=== PATIENT | female | born 1940 | race Caucasian/White ===

== ENCOUNTER 2024-02-02 21:54 | Emergency (ER) | payer OTHER, SELFPAY ==
[2024-02-02 21:59] VITALS: BP 134/82
--- NOTE | 2024-02-02 22:59 | ED.GENMED ---
History of Present Illness
<REX Green - Last Filed: 02/03/24 21:55>
General
Chief Complaint: Fall
Source: patient and ambulance crew
Exam Limitations: dementia
Time Seen by Provider: 02/02/24 22:32
Nursing documentation reviewed up to this point in time: agreed with
Travel History
Have you had any contact with someone who has COVID-19?: No
Do you have any symptoms of coronavirus? Fever > 100 degrees, chills, cough, shortness of breath, sore throat, loss of taste or smell, muscle aches, or headache?: No
History of Present Illness
History of Present Illness:
patient is a 83 y/o female with PMH of hypothyroidism and alzeimers presenting after a witnessed fall earlier today. Patient was brought in by EMS after someone witnessed her fall and hit her head. Patient lives at a [place] [facility] who states patient
is not on blood thinners. Patient has a laceration to her left dorsum of her hand. Patient has alzeimhers and does not recall the event. Patient denies current N/V/D/C, BAILEY, CP, SOB, visual changes, dizziness, or muscle or joint pain. Patient denies
pain to wrist or elbow. Patient is a non reliable source due to mental status.
Review of Systems
<REX Green - Last Filed: 02/03/24 21:55>
Review of Systems
Unable to obtain full review of systems at this time due to: dementia
Other source history: [place] [facility] and ambulance crew
All Other Systems: Not applicable
Constitutional: Reports no symptoms
EENT: Reports no symptoms
Respiratory: Reports no symptoms
Cardiac: Reports no symptoms
ABD/GI: Reports no symptoms
: Reports no symptoms
Musculoskeletal: Reports no symptoms
Skin: Reports other (laceration that patients states is burning )
Neurological: Reports no symptoms
Endocrine: Reports no symptoms
Hematologic/Lymphatic: Reports no symptoms
Psychiatric: Reports no symptoms
Phy Exam
<REX Green - Last Filed: 02/03/24 21:55>
General Physical Exam
General Presentation: well appearing and no apparent distress
General Skin: warm and dry
General Habitus: normal
General Mental: alert
General Hydration: appears well hydrated
ENT Exam
ENT Exam: EOMI, pharynx normal, neck supple and normocephalic
Eye Exam
Eye Exam: PERRL, cornea clear and conjunctiva normal
Cardiovascular Exam
Cardiovascular Exam: regular rate/rhythm, no edema, no murmur and normal peripheral pulses
Pulmonary Exam
Pulmonary Exam: lungs clear, no respiratory distress, no rales, no crackles, no rhonchi, no stridor, no wheezing and no cough
Gastrointestinal Exam
Gastrointestinal Exam: normal bowel sounds, non tender, soft, no organomegaly, no pulsatile mass and non distended
Neurological Exam
Neurological Exam: alert, oriented x3, no motor deficits and speech normal
Musculoskeletal Exam
Musculoskeletal Exam: full ROM
Skin Exam
Skin Exam: laceration (left dorsum of her hand)
Psychiatric Exam
Psychiatric Exam: normal mood/affect
Course
<REX Green - Last Filed: 02/03/24 21:55>
Orders/Labs/Results
Orders:
Orders
02/02/24 23:00
CT Head W/o Iv Contrast Urgent
Comment:
Reason For Exam: fall
02/02/24 23:30
CR Hand - Left 2 Views Urgent
Comment:
Reason For Exam: fall
Vital Signs
Initial and Last Documented VS:
Initial Vital Signs
Temp Pulse Resp BP Pulse Ox
98 F 98 20 134/82 98
02/02/24 21:59 02/02/24 21:59 02/02/24 21:59 02/02/24 21:59 02/02/24 21:59
Last Documented Vital Signs
Temp Pulse Resp BP Pulse Ox
98 F 78 17 148/83 98
02/02/24 21:59 02/02/24 23:25 02/02/24 23:25 02/02/24 23:25 02/02/24 23:25
<Anastacio Bowers DO - Last Filed: 02/03/24 01:23>
Orders/Labs/Results
Orders:
Orders
02/02/24 23:00
CT Head W/o Iv Contrast Urgent
Comment:
Reason For Exam: fall
02/02/24 23:30
CR Hand - Left 2 Views Urgent
Comment:
Reason For Exam: fall
Vital Signs
Initial and Last Documented VS:
Initial Vital Signs
Temp Pulse Resp BP Pulse Ox
98 F 98 20 134/82 98
02/02/24 21:59 02/02/24 21:59 02/02/24 21:59 02/02/24 21:59 02/02/24 21:59
Last Documented Vital Signs
Temp Pulse Resp BP Pulse Ox
98 F 78 17 148/83 98
02/02/24 21:59 02/02/24 23:25 02/02/24 23:25 02/02/24 23:25 02/02/24 23:25
<REX Green - Last Filed: 02/03/24 21:55>
MDM/Problems Addressed
Differential Diagnosis Includes:
left hand laceration
wrist fracture
brain hemorrhage
fall complications
MDM/Problems Addressed:
fall
<REX Green - Last Filed: 02/03/24 21:55>
*Critical Care Note
Total Time (30-74mins, 75-104mins- exclusive of procedures): Not Applicable
<Anastacio Bowers DO - Last Filed: 02/03/24 01:23>
Update Note
Update Note:
CT HEAD
IMPRESSION:
No acute hemorrhage, herniation, or hydrocephalus.
No calvarial fracture.
The visualized paranasal sinuses and mastoid air cells are clear.
ED Attending Note
<REX Green - Last Filed: 02/03/24 21:55>
-
Portions of this chart may have been created with voice recognition software.� Occasional wrong word or��sound alike� substitutions may have occurred due to the inherent limitations of voice recognition software.
<Anastacio Bowers DO - Last Filed: 02/03/24 01:23>
ED Attending Note
Patient seen and examined by attending physician: Yes
I performed the substantive portion of visit, reviewed & personally made and approve the management plan that is documented in note by myself or RASHMI.: Yes
ED Attending Note:
This is a pleasantly demented 83-year-old female that presents with injuries from a fall. She lives at [facility] and brought in by EMS. She did fall but it was unwitnessed. She hit her head. She is not on any blood thinners. Her only
complaint is pain to the dorsum of the left hand. Patient denies any other injury patient was seen in conjunction with the PA student. I have reviewed and agree with the history and treatment plan presented. On my independent physical exam,
patient is awake, confused, at baseline. Lungs are clear to auscultation bilaterally. There is no chest wall tenderness to palpation. No abdominal pain to palpation. No neck pain elicited from palpation. No hip pain. Negative hip rolling test
bilaterally. Good distal pulses on all 4 extremities. Wrist has full range of motion on the left. No tenderness to palpation at the wrist. There is a skin tear approximately 5 cm in length.
The skin tear was thoroughly cleaned by myself. Prineo Dermabond mesh was applied and it adhered to the wound. Patient tolerated procedure well.
Discharge Plan
Departure
Patient Disposition: Residential/SNF
Date of Disposition: 02/03/24
Time of Disposition: :23
Discharge Problem:
fall
Referrals:
UNKNOWN - PT DOES,NOT KNOW [Family Provider] -
Interventions
Interventions:
*Risk Screen - Suicide Last Done: 02/03/24 04:40
*General Assessment Last Done: 02/02/24 23:25
*Neglect/Abuse Screening Last Done: 02/03/24 04:40
ED- Fall Risk Assessment Last Done: 02/02/24 23:25
*ED COVID-19 Vaccine History Last Done: 02/02/24 23:25
*Nursing Disposition Last Done: 02/03/24 04:40
ED-Musculoskeletal Assessment Last Done: 02/02/24 23:25
ED- Neurological Assessment Last Done: 02/02/24 23:25
ED-Skin Assessment Last Done: 02/02/24 23:25
Discharge Date and Time
Discharge Date/Time: 02/03/24 04:40
Print Language: ROMANIAN
[2024-02-02 23:25] VITALS: BP 148/83
== END 2024-02-03 04:40 ==
LOC: EMR 21:54
PROVIDERS: EMERGENCY PHYSICIAN Student in an Organized Health Care Education/Training Program
DX: S61.412A Laceration without foreign body of left hand, initial encounter (principal); W19.XXXA Unspecified fall, initial encounter
CPT/HCPCS: 99284; 12002; 70450; 73120

== ENCOUNTER 2024-06-02 18:51 | Emergency (ER) | payer OTHER, SELFPAY ==
[2024-06-02 18:54] VITALS: BP 104/76
[2024-06-02 19:00] VITALS: BMI 17.2
--- NOTE | 2024-06-02 21:33 | ED.MUSCINJ ---
HPI-Injury
General
Chief Complaint: Musculo-Skeletal Complaint
Source: patient
Exam Limitations: none
Time Seen by Provider: 06/02/24 19:35
History of Present Illness-Injury
Initial Injury comments:
84-year-old female presents from [facility] with trouble ambulating. She has history of dementia and cannot provide any valuable history. Per reports she walked just fine to the EMS stretcher. She has no complaints offer.
Phy Exam
Physical Exam
Physical Exam:
General: Well-appearing female no acute respiratory distress
HEENT: Normocephalic atraumatic heart: Regular rate and rhythm no murmurs
Lungs: Clear no wheeze or rales
Musculoskeletal exam: No deformities. Patient has slight tenderness noted to the right thigh. There is thick calluses noted to the plantar surface of the right foot. No surrounding erythema.
Injury Course
Orders/Labs/Results
Orders:
Orders
06/02/24 20:08
CR Femur - Right Min 2 Vw Urgent
Comment:
Reason For Exam: pain
MDM/Problems Addressed
Differential Diagnosis Includes:
Ambulatory difficulty. Patient typically walks without a walker. She walked here in the room with a slight limp on the right leg. She points to the right thigh. X-rays of the right femur pending
*Critical Care Note
Total Time (30-74mins, 75-104mins- exclusive of procedures): Not Applicable
Update Note
Update Note:
X-rays of the right femur were personally visualized and are negative for acute finding. Patient stable for discharge back to facility
ED Attending Note
-
Portions of this chart may have been created with voice recognition software.� Occasional wrong word or��sound alike� substitutions may have occurred due to the inherent limitations of voice recognition software.
Discharge Plan
Departure
Patient Disposition: Home (Routine Discharge)
Date of Disposition: 06/02/24
Time of Disposition: 21:36
Patient with high blood pressure during this ER visit?: No
Discharge Problem:
evaluation for gait dysfunction
Prescriptions:
No Action
quetiapine 25 mg tablet
50 mg PO QPM
quetiapine 25 mg tablet
12.5 mg PO BID@0800,1400
ammonium lactate 12 % Lotion
1 applic TOPICAL TID
levothyroxine 75 mcg tablet
75 mcg PO DAILY
mirtazapine 15 mg tablet
15 mg PO HS
melatonin 5 mg Tablet
5 mg PO HS
Eucerin Skin Calming Cream
1 applic TOPICAL DAILY
Eucerin Creme
1 applic topical HS
Referrals:
Samir Montelongo MD [Family Provider] -
Activity Restrictions/Additional Instructions:
Return here if needed
Interventions
Interventions:
*Risk Screen - Suicide Last Done: 06/02/24 19:06
*General Assessment Last Done: 06/02/24 19:01
*Neglect/Abuse Screening Last Done: 06/02/24 19:06
ED- Fall Risk Assessment Last Done: 06/02/24 19:06
*ED COVID-19 Vaccine History Last Done: 06/02/24 21:39
*Nursing Disposition Last Done: 06/02/24 21:39
ED-Musculoskeletal Assessment Last Done: 06/02/24 19:04
Discharge Date and Time
Discharge Date/Time: 06/02/24 21:58
Print Language: CZECH
== END 2024-06-02 21:58 | disposition home or self-care (01) ==
LOC: EMR 18:51
PROVIDERS: EMERGENCY PHYSICIAN Emergency Medicine; FAMILY PHYSICIAN Internal Medicine
DX: R26.2 Difficulty in walking, not elsewhere classified (principal); F03.90 Unspecified dementia, unspecified severity, without behavioral disturbance, psychotic disturbance, mood disturbance, and anxiety
CPT/HCPCS: 99283; 73552

== ENCOUNTER 2025-01-09 08:01 | Inpatient (IN) | payer MEDICARE, OTHER, SELFPAY ==
[2025-01-07 14:27] VITALS: BP 165/98
--- NOTE | 2025-01-07 15:27 | ED.GENMED ---
History of Present Illness
General
Chief Complaint: Musculo-Skeletal Complaint
Time Seen by Provider: 01/07/25 15:23
History of Present Illness
History of Present Illness:
Patient is a 84-year-old woman with history of dementia presenting to the emergency department with arm pain. Per medics patient was noted to have swelling pain and redness to the right wrist and arm. Otherwise history is limited secondary to
patient's dementia.no known falls per family members at bedside. no fevers
Phy Exam
Physical Exam
Physical Exam:
GENERAL: in no acute distress
HEENT: normocephalic
NECK: normal inspection
RESPIRATORY: no respiratory distress
CARDIOVASCULAR: regular rate and rhythm
EXTREMITIES: Right upper extremity with swelling to the distal forearm, warm and mild erythema (MCP to mid forearm), some bruising whole arm tenderness to palpation, full range of motion
NEUROLOGIC: awake and alert, moves all extremities
SKIN: warm
Course
Orders/Labs/Results
Orders:
Orders
01/07/25 15:46
Basic Metabolic Panel Urgent
Complete Blood Count/With Diff Urgent
01/07/25 17:03
CefTRIAXone [Rocephin] 1,000 mg IV NOW STA
Abnormal Lab Results
01/07/25
15:46
RBC 3.07 L 10^6/uL
(4.20-5.40)
Hgb 9.3 L g/dL
(12.0-16.0)
Hct 27.3 L %
(37.0-47.0)
RDW 14.6 H %
(11.5-14.5)
Abs Immat Gran (auto) 0.1 H 10^3/uL
(0-0.05)
Absolute Neuts (auto) 6.9 H 10^3/uL
(1.4-6.5)
Absolute Monos (auto) 0.9 H 10^3/uL
(0.1-0.6)
Immature Gran % 0.6 H %
(0-0.5)
Lymphocytes % 14.9 L %
(20.5-51.1)
Monocytes % 9.6 H %
(1.7-9.3)
BUN 20 H mg/dl
(7-17)
Creatinine 1.1 H mg/dL
(0.6-1.0)
Glucose 118 H mg/dl
(70-99)
01/07/25 15:46
01/07/25 15:46
Vital Signs
Initial and Last Documented VS:
Initial Vital Signs
Temp Pulse Resp BP Pulse Ox
98.7 F 102 18 165/98 98
01/07/25 14:27 01/07/25 14:27 01/07/25 14:27 01/07/25 14:27 01/07/25 14:27
Last Documented Vital Signs
Temp Pulse Resp BP Pulse Ox
98.7 F 102 18 165/98 98
01/07/25 14:27 01/07/25 14:27 01/07/25 14:27 01/07/25 14:27 01/07/25 14:27
MDM/Problems Addressed
Differential Diagnosis Includes:
Patient is a 84-year-old woman with history of dementia presenting to the emergency department with arm swelling redness and warmth. Vitals are notable for heart rate in the low 100s and exam does show swelling warmth and redness to the distal
right forearm. Concern for cellulitis vs myositis versus DVT given the extent of the swelling. Considered septic arthritis of the wrist however the erythema is from the MCP to the mid forearm and there is no increased swelling to the wrist, it is
diffuse. Will check blood work and ultrasound.
*Critical Care Note
Total Time (30-74mins, 75-104mins- exclusive of procedures): Not Applicable
Update Note
Update Note:
Blood work is unremarkable. Unfortunately patient was not cooperative with the DVT study. At this time my clinical suspicion for DVT is low. Will start patient on IV antibiotics and admit to the hospitalist. Unclear reaction to penicillin. Will
trial ceftriaxone. Discussed with hospitalist who excepted patient to their service pending CK.
ED Attending Note
-
Portions of this chart may have been created with voice recognition software.� Occasional wrong word or��sound alike� substitutions may have occurred due to the inherent limitations of voice recognition software.
Discharge Plan
Departure
Patient Disposition: Admit
Date of Disposition: 01/07/25
Time of Disposition: 17:03
Presentation/result/management discussed w/ accepting MD/DO: Hospitalist
Discharge Problem:
Cellulitis
Prescriptions:
No Action
levothyroxine 75 mcg tablet
75 mcg PO DAILY
Eucerin Skin Calming Cream
1 applic TOPICAL DAILY
trazodone 50 mg Tablet
25 mg PO HS
clonazepam 0.5 mg Tablet
0.25 mg PO BID
clonazepam 0.5 mg Tablet
0.5 mg PO DAILYPRN PRN (Reason: anxiety)
Rx Instructions:
give prior to care, do not exceed 2 doses in 24hr
Referrals:
Radha Caballero DO [Family Provider] -
Interventions
Interventions:
*Risk Screen - Suicide Last Done: 01/07/25 14:27
*General Assessment Last Done: 01/07/25 14:27
*Neglect/Abuse Screening Last Done: 01/07/25 14:27
*ED- Fall Risk Assessment Last Done: 01/07/25 14:43
*ED COVID-19 Vaccine History Last Done: 01/07/25 14:43
ED-Musculoskeletal Assessment Last Done: 01/07/25 14:41
Discharge Date and Time
Print Language: NIGERIAN
[2025-01-07 15:56] LABS: % Basophils 0.2 % (0-2); % Eosinophils 0.1 % (0-6); % Immature Granulocytes 0.6 % (0-0.5); % Lymphocytes 14.9 % (20.5-51.1); % Monocytes 9.6 % (1.7-9.3); % Neutrophils 74.6 % (42.2-75.2); Absolute Immature Granulocytes 0.1 10^3/uL (0-0.05); Absolute Lymphocytes 1.4 10^3/uL (1.2-3.4); Absolute Monocytes 0.9 10^3/uL (0.1-0.6); Absolute Neutrophils 6.9 10^3/uL (1.4-6.5); Hematocrit 27.3 % (37.0-47.0); Hemoglobin 9.3 g/dL (12.0-16.0); Mean Corp Hgb Conc. 34.1 g/dL (33.0-37.0); Mean Corpuscular Hgb 30.3 pg (27.0-31.0); Mean Corpuscular Volume 88.9 fL (81.0-99.0); Mean Platelet Volume 9.6 fL (7.4-10.4); Nucleated Red Blood Cells % 0 %; Platelet Count 181 10^3/uL (130-400); Red Blood Cell Count 3.07 10^6/uL (4.20-5.40); Red Cell Dist. Width 14.6 % (11.5-14.5); White Blood Cell Count 9.3 10^3/uL (4.8-10.8)
[2025-01-07 16:09] LABS: Blood Urea Nitrogen 20 mg/dl (7-17); Calcium 9.1 mg/dl (8.4-10.2); Carbon Dioxide 28 mmol/L (22-30); Chloride 104 mmol/L (98-107); Glucose 118 mg/dl (70-99); Potassium 3.9 mmol/L (3.5-5.1); Sodium 138 mmol/L (135-145); eGFR 50.17
[2025-01-07] MEDS: ROCEPHIN 1000 MG IV (17:15)
--- NOTE | 2025-01-07 17:21 | HPS.HSE ---
Family Physician
-
Family Physician: Radha Caballero
Chief Complaint
-
right arm pain and swelling
History of Present Illness
84-year-old female past medical history of advanced dementia resides at [facility], anxiety, hypothyroidism, presenting to emergency room with right wrist and arm pain and swelling. As per medics she was noted to have swelling and pain and redness
of the right wrist and arm. No fevers or chills. This was noticed today but family had not seen her in the past 1 day. No injury or falls.
Patient has very advanced dementia at baseline and is combative and tries to flee. No prior history of gout or joint infections.
No prior history of smoking or alcohol use.
Left wrist surgery 4 years ago.
Medical History
Past Medical History
Past Medical History: Reports Other (advanced dementia resides at [facility], anxiety, hypothyroidism, )
Past Surgical History: Reports None
Social History
Tobacco: Non-smoker
Alcohol: None
Drug: None
Family History
Family History: Not pertinent
Allergies / Home Medications
Allergies reflects when Allergies were last updated in [employer].
Home Medications with original date entered in [employer]
Allergy/Medication List:
Allergies
Allergy/AdvReac Type Severity Reaction Status Date / Time
clarithromycin Allergy Unknown Verified 06/02/24 19:09
NSAIDS (Non-Steroidal Allergy Unknown Verified 06/02/24 19:09
Anti-Inflamma
Penicillins Allergy Unknown Verified 06/02/24 19:09
IBANDRONIC ACID Allergy Unknown Uncoded 06/02/24 19:09
Home Medications
emollient combination no.69 (Eucerin Skin Calming cream) 1 applic topical DAILY 06/02/24
levothyroxine 75 mcg tablet 75 mcg PO DAILY 06/02/24
clonazepam 0.5 mg tablet 0.25 mg PO BID 01/07/25
clonazepam 0.5 mg tablet 0.5 mg PO DAILYPRN PRN anxiety 01/07/25
trazodone 50 mg tablet 25 mg PO HS 01/07/25
Review of Systems
-
History Source: Patient
A 12 point ROS was completed and negative except as noted: Yes
Constitutional: Reports No Symptoms
EENT: Reports No Symptoms
Respiratory: Reports No Symptoms
Cardiac: Reports No Symptoms
Abdomen/GI: Reports No Symptoms
: Reports No Symptoms
Musculoskeletal: Reports No Symptoms
Skin: Reports See HPI
Neurological: Reports No Symptoms
Endocrine: Reports No Symptoms
Hematologic/Lymphatic: Reports No Symptoms
Psych: Reports No Symptoms
Physical Exam
Vital Signs
Vital Signs
Temp Pulse Resp BP Pulse Ox
98.7 F 102 18 165/98 98
01/07/25 14:27 01/07/25 14:27 01/07/25 14:27 01/07/25 14:27 01/07/25 14:27
Physical Exam
General: Well Developed, Well Nourished and No Apparent Distress
HEENT: NormoCephalic, Moist mucous membranes and Atraumatic
Respiratory: Clear
Cardiac: S1/S2 and Regular Rhythm; No Murmur or Rub
GI: Soft, Non Tender, Non Distended and Normal Bowel Sounds; No Organomegaly
Rectal: Deferred by Provider
Musculoskeletal: No Clubbing, No Cyanosis and No Edema
Skin: Other (right forearm wrist erythematous, swollen ); No Rash
Neuro: Nonfocal/grossly intact
Laboratory Results
-
01/07/25 15:46
01/07/25 15:46
Data Reviewed
-
Lab Data: Labs Reviewed by me
Old Records: Reviewed
Impression/Plan
-
IMPRESSION:
PLAN:
# Right forearm/wrist cellulitis
-Patient will not let me examine arm fully, normal for her to behave this way as per family,
-Cefazolin for now
-Ultrasound was ordered but patient would not allow this
#Likely CKD
Creatinine 1.1, no prior for comparison
Advanced Dementia/anxiety
-Continue clonazepam, trazodone
-Patient high fall risk
Hypothyroidism
-Continue levothyroxine
Chronic anemia
-Hemoglobin 9
DNR/DNI
DVT prophylaxis�heparin
Regular diet
[2025-01-07 17:23] VITALS: BP 154/96
[2025-01-07 17:33] VITALS: BMI 17.3
[2025-01-07 17:37] LABS: Creatine Phosphokinase 304 U/L (30-135)
[2025-01-07 19:01] VITALS: BP 154/90
--- NOTE | 2025-01-07 19:12 | PTCARENOTE ---
pt presents from ED via stretcher. pt is confused, restless, combative, trying to get oob. pt is on bed alarm. call mahoney within the reach. plan of care ongoing
[2025-01-07] MEDS: HEPARIN 5000 UNITS SC (20:52)
[2025-01-07] MEDS: KLONOPIN 0.25 MG PO (20:56)
[2025-01-07] MEDS: DESYREL 25 MG PO (20:57)
[2025-01-07] MEDS: TYLENOL 650 MG PO (22:42)
[2025-01-07] MEDS: ANCEF 5 IV (23:00)
[2025-01-07 23:39] VITALS: BP 137/85
[2025-01-08] MEDS: SYNTHROID 75 MCG PO (05:29)
[2025-01-08 06:03] LABS: % Basophils 0.5 % (0-2); % Eosinophils 0.5 % (0-6); % Immature Granulocytes 0.4 % (0-0.5); % Lymphocytes 33.8 % (20.5-51.1); % Monocytes 8.6 % (1.7-9.3); % Neutrophils 56.2 % (42.2-75.2); Absolute Basophils 0.1 10^3/uL (0-0.2); Absolute Eosinophils 0.1 10^3/uL (0-0.7); Absolute Lymphocytes 3.2 10^3/uL (1.2-3.4); Absolute Monocytes 0.8 10^3/uL (0.1-0.6); Absolute Neutrophils 5.4 10^3/uL (1.4-6.5); Hematocrit 28.2 % (37.0-47.0); Hemoglobin 9.8 g/dL (12.0-16.0); Mean Corp Hgb Conc. 34.8 g/dL (33.0-37.0); Mean Corpuscular Hgb 30.5 pg (27.0-31.0); Mean Corpuscular Volume 87.9 fL (81.0-99.0); Mean Platelet Volume 9.7 fL (7.4-10.4); Nucleated Red Blood Cells % 0 %; Platelet Count 191 10^3/uL (130-400); Red Blood Cell Count 3.21 10^6/uL (4.20-5.40); Red Cell Dist. Width 14.3 % (11.5-14.5); White Blood Cell Count 9.5 10^3/uL (4.8-10.8)
[2025-01-08 06:26] LABS: Blood Urea Nitrogen 15 mg/dl (7-17); Calcium 9.3 mg/dl (8.4-10.2); Carbon Dioxide 24 mmol/L (22-30); Chloride 104 mmol/L (98-107); Estimated Creatinine Clearance 33 ml/min; Glucose 90 mg/dl (70-99); Potassium 4.6 mmol/L (3.5-5.1); Sodium 138 mmol/L (135-145); eGFR > 60.00
[2025-01-08] MEDS: HEPARIN 5000 UNITS SC (08:52)
[2025-01-08] MEDS: ANCEF 5 IV ×3 (08:52→23:01)
[2025-01-08 08:53] VITALS: BP 92/65
[2025-01-08] MEDS: KLONOPIN 0.25 MG PO ×2 (08:53→20:34)
--- NOTE | 2025-01-08 11:52 | CM ---
Initial assessment completed with pt friend via phone.
Pt is an 84yr old admitted from [facility] with swelling and cellulitis of her wrist and hand.
Per friend, pt is agitated and resistive to care at baseline, which has continued here in the hospital.
Pt is indep with mobility at baseline, and does receive some aide with ADLs.
PCP Radha Caballero
Pharm; [facility]
PLAN; Return to [place]
--- NOTE | 2025-01-08 12:59 | VATNOTE ---
left iv site needs to be redressed; however pt. extremely combative.
--- NOTE | 2025-01-08 13:26 | W.PN.HOSP.TC ---
Today's Communication/Plan
-
cw Cefazolin
Ortho consult
Assessment / Plan
Assessment / Plan
# Right forearm/wrist cellulitis
-Nontoxic and not toxic
-cw Cefazolin for now
- Will consult ortho for diagnostic arthrocentesis of the wrist.
#Likely CKD
Creatinine 1.1, no prior for comparison
Advanced Dementia/anxiety
-Continue clonazepam, trazodone
-Patient high fall risk
Hypothyroidism
-Continue levothyroxine
Chronic anemia
-Hemoglobin 9
DNR/DNI
DVT prophylaxis�heparin
Regular diet
Anticipated Discharge: > 48 hours
Subjective/Interval History
-
Date of Service: January 08, 2025
Confused from dementia. No meaningful history obtained from the patient.
Looks nontoxic.
Objective Data
-
Labs:
Laboratory Results
01/08/25
05:37
WBC 9.5
Hgb 9.8 L
Hct 28.2 L
Plt Count 191
Sodium 138
Potassium 4.6
Chloride 104
Carbon Dioxide 24
BUN 15
Creatinine 0.8
Glucose 90
Calcium 9.3
Vital Signs:
Vital Signs
Temp Pulse Resp BP Pulse Ox
99.1 F 79 18 92/65 96
01/07/25 23:39 01/08/25 08:53 01/08/25 08:53 01/08/25 08:53 01/07/25 23:39
I&O
01/07/25 01/08/25 01/09/25
05:59 06:59 06:59
Intake Total
Output Total
Balance
Review of Systems
-
Unable to obtain full review of systems at this time due to: Dementia
Physical Exam
-
General: Comfortable
Respiratory: Clear to Auscultation and Non Labored Respirations; Negative Accessory Resp Muscle Use
Cardiac: Regular Rhythm and S1/S2
GI: Soft
Musculoskeletal: Other (Rt dorsum of hand and proximal forearm with cellulitis; Rt wrist with swelling and PROM . Pt not much cooperative to exam.)
Neuro: Awake, Alert and Oriented
Psych: Calm and Confused
Data Reviewed
-
Labs: Labs Reviewed by me
[2025-01-08] MEDS: KLONOPIN 0.5 MG PO (13:29)
--- NOTE | 2025-01-08 14:11 | CON.ORTHO ---
Consultation - Orthopedics
History
Patient is a 84-year-old woman, severely demented who has a right swollen wrist. No history available from patient. Patient resides in memory care and there was no nursing history of fall or trauma. No previous history of septic arthritis or
crystal disease.
Allergies / Home Medications
Allergy/AdvReac Type Severity Reaction Status Date / Time
clarithromycin Allergy Unknown Verified 06/02/24 19:09
NSAIDS (Non-Steroidal Allergy Unknown Verified 06/02/24 19:09
Anti-Inflamma
Penicillins Allergy Unknown Verified 06/02/24 19:09
IBANDRONIC ACID Allergy Unknown Uncoded 06/02/24 19:09
�Medication �Instructions �Recorded
emollient combination no.69 1 applic topical DAILY 06/02/24
(Eucerin Skin Calming cream)
levothyroxine 75 mcg tablet 75 mcg PO DAILY 06/02/24
clonazepam 0.5 mg tablet 0.25 mg PO BID 01/07/25
clonazepam 0.5 mg tablet 0.5 mg PO DAILYPRN PRN anxiety 01/07/25
trazodone 50 mg tablet 25 mg PO HS 01/07/25
Vital Signs / Lab Results
Temp Pulse Resp BP Pulse Ox
99.1 F 79 18 92/65 96
01/07/25 23:39 01/08/25 08:53 01/08/25 08:53 01/08/25 08:53 01/07/25 23:39
01/08/25 05:37
01/08/25 05:37
Patient is clearly agitated. Right wrist is moderately swollen and patient avoids using it. Distal neurovascular exam is intact. Unable to appreciate an effusion.
Assessment / Plan
Right wrist erythema.
Recommend x-rays, this could be the result of advanced osteoarthritis.
Other diagnoses include septic arthritis or crystal disease. Would recommend either empiric treatment with antibiotics and steroids or for definitive diagnosis interventional radiology for aspiration.
[2025-01-08] MEDS: HEPARIN SC ×2 (20:36→20:48)
[2025-01-08] MEDS: DESYREL 25 MG PO (22:56)
[2025-01-08 23:01] VITALS: BP 115/85
[2025-01-09] MEDS: SYNTHROID 75 MCG PO (05:24)
[2025-01-09 07:05] VITALS: BP 155/98
[2025-01-09] MEDS: HEPARIN SC ×3 (08:29→20:15)
[2025-01-09] MEDS: ANCEF 5 IV ×3 (08:31→23:02)
[2025-01-09] MEDS: KLONOPIN 0.25 MG PO ×2 (08:32→20:15)
--- NOTE | 2025-01-09 09:10 | W.PN.UPDATE ---
Update Note
Progress Note Update
patient more lucid this morning. Was very engaging and answer questions appropriately. Right wrist symptoms have essentially resolved. No pain about the wrist to palpation. Pain-free range of motion of the wrist hand and fingers. Continue
treatment per the primary medical team. As a formality three-view x-rays were requested. Will comment after completion
[2025-01-09] MEDS: DECADRON 10 MG IV (15:04)
--- NOTE | 2025-01-09 15:08 | W.PN.HOSP.TC ---
Today's Communication/Plan
-
check uric acid
decadron x 1
x-ray to r/o fracture if we can get it
Assessment / Plan
Assessment / Plan
pt is an 84 year old female
Right forearm/wrist swelling and tender to touch--doubt cellulitis--suspect more gout--also doubt septic arthritis--do not believe she will stay still for x-ray (ordered anyway) or arthrocentesis--cont ancef--check uric acid--give 10 mg decadron x 1
now
JOSETTE--creat 1.1 on admission down to 0.8
Advanced Dementia/anxiety--Continue clonazepam, trazodone--Patient high fall risk
Hypothyroidism--Continue levothyroxine
Chronic anemia--Hemoglobin 9--no reason to suspect active bleeding
code status --DNR/DNI
DVT proph�heparin
Anticipated Discharge: 24 - 48 hours
Subjective/Interval History
-
Date of Service: January 09, 2025
very confused--not redirectable--moving all over the bed even with at bedside
Objective Data
-
Vital Signs:
max temp for 24 hours
01/07/25
19:01
Temp 100.1 F
Vital Signs
Temp Pulse Resp BP Pulse Ox
97.5 F 92 20 155/98 99
01/09/25 07:05 01/09/25 07:05 01/09/25 07:05 01/09/25 07:05 01/09/25 11:41
I&O
01/08/25 01/09/25 01/10/25
06:59 06:59 06:59
Intake Total 60 / 60
Output Total
Balance 60 / 60
Review of Systems
-
Unable to obtain full review of systems at this time due to: Dementia
Physical Exam
-
General: Well Developed and Well Nourished
HEENT: Normocephalic
Respiratory: Clear to Auscultation
Cardiac: Regular Rhythm and S1/S2; Negative Murmur
GI: Soft, Nontender, Nondistended and Normal Bowel Sounds
Musculoskeletal: No Clubbing, No Cyanosis and Other (right wrist tender to touch and swollen, red)
Neuro: Other (not redirectable); Negative AO x 3
Psych: Agitated and Apparent Dementia
[2025-01-09 15:10] VITALS: BP 156/93
--- NOTE | 2025-01-09 15:30 | CM ---
Patient seen at bedside with patient and physician. Patient unable to complete sentence, patient stated that she was like this normally. Patient confirmed plan is to return to [facility]. CM will continue to follow
for discharge planning needs.
Plan; return to center, pending medical treatment plan
[2025-01-09] MEDS: DESYREL 25 MG PO (22:57)
[2025-01-09 23:41] VITALS: BP 128/81
[2025-01-10] MEDS: SYNTHROID PO (06:11)
[2025-01-10 07:55] VITALS: BP 126/95
[2025-01-10] MEDS: KLONOPIN 0.25 MG PO (08:28)
[2025-01-10] MEDS: ANCEF 5 IV (08:28)
[2025-01-10] MEDS: HEPARIN 5000 UNITS SC (08:29)
[2025-01-10 08:35] LABS: Uric Acid 4.7 mg/dl (2.5-6.2)
--- NOTE | 2025-01-10 08:44 | W.PN.UPDATE ---
Update Note
Progress Note Update
Patient resting in bed this morning. She reports little pain to the wrist. Xrays performed yesterday show acute transverse impacted fracture of the distal right radius, small acute displaced fracture of the ulnar styloid, moderate osteoarthritis of
the scaphotrapezial joint. Recommend wrist brace to right arm (ordered urgently from [facility]). She is to wear this at all times. Try to limit weight bearing. Follow up outpatient in two weeks for repeat xrays.
--- NOTE | 2025-01-10 09:34 | CM ---
Addendum entered by Carolyn Rees 01/10/25 14:35:
CM spoke with Letty at [phone]/ fax [phone]. Patient to return to [facility] today. [facility] pharmacy. Patient and facility asked to use [facility] as they are contracted with them and it is much
cheaper for patient copay. CM spoke with Letty who is arranged ambulance for 6pm as [facility] is not able to do so. CM also sent referral to [facility] for nursing support at [facility]. CM will call to patient and review IMM.
CM will continue to follow for discharge planning needs.
Plan; home with [facility]
Addendum entered by Carolyn Rees 01/10/25 14:01:
CM spoke with [facility] at [facility] facility to update that patient is not working with therapy at this time. She indicated that she would call CM back regarding next steps. CM will continue to follow for discharge planning needs.
Plan; return to memory care at [facility]
Addendum entered by Carolyn Rees 01/10/25 11:36:
pending wrist brace from ED. CM will call to patient facility to confirm plan
Original Note:
CM spoke with nurse cloth napping supervisor at [facility] to update her that patient had wrist fracture per physician. CM will fax findings at nurse request to [phone] and per nurse recommendation is for rehab at [facility]. CM will review with
patient and send referrals. CM will continue to follow for discharge planning needs.
Plan; SNF vs personal care pending medical management
--- NOTE | 2025-01-10 14:26 | W.PN.HOSP.TC ---
Today's Communication/Plan
-
d/c
Assessment / Plan
Assessment / Plan
pt is an 84 year old female
Right forearm/wrist swelling and tender to touch--doubt cellulitis--acute transverse impacted fracture of distal right radius with small acute displaced fracture of the ulnar styloid per x-ray checked last night, follow up with ortho--not gout, uric
acid 4.7--also doubt septic arthritis-- stop ancef---s/p 10 mg decadron x 1 now--will need brace and pain meds
JOSETTE--creat 1.1 on admission down to 0.8
Advanced Dementia/anxiety--Continue clonazepam, trazodone--Patient high fall risk
Hypothyroidism--Continue levothyroxine
Chronic anemia--Hemoglobin 9--no reason to suspect active bleeding
code status --DNR/DNI
DVT proph�heparin
Anticipated Discharge: Today
Subjective/Interval History
-
Date of Service: January 10, 2025
pt remains confused
Objective Data
-
Vital Signs:
max temp for 24 hours
01/09/25
15:10
Temp 99.6 F
Vital Signs
Temp Pulse Resp BP Pulse Ox
98.2 F 68 16 126/95 97
01/10/25 07:55 01/10/25 07:55 01/10/25 07:55 01/10/25 07:55 01/10/25 10:00
I&O
01/09/25 01/10/25 01/11/25
06:59 06:59 06:59
Intake Total 60 / 60 420 / 420
Balance 60 / 60 420 / 420
Review of Systems
-
Unable to obtain full review of systems at this time due to: Dementia
Physical Exam
-
General: Well Developed, Well Nourished and No Apparent Distress
HEENT: Normocephalic and Atraumatic
Respiratory: Clear to Auscultation; Negative Wheezes or Rhonchi
Cardiac: Regular Rhythm and S1/S2; Negative Murmur
GI: Soft, Nontender, Nondistended and Normal Bowel Sounds
Musculoskeletal: No Clubbing, No Cyanosis and Other (right wrist swollen pain)
[2025-01-10 15:55] VITALS: BP 106/78
[2025-01-10] MEDS: ANCEF IV (16:28)
--- NOTE | 2025-01-10 16:52 | W.DCSUMMARY ---
Discharge Summary
Discharge Data
Date of Admission: 01/07/25
Date of Discharge: 01/10/25
-
Pending Results: No
Hospital Course
Primary care physician : Radha Caballero
Principal Discharge diagnosis : Acute transverse impacted fracture of the distal right radius with small acute displaced fracture of the ulnar styloid, acute kidney injury
Chronic Discharge diagnosis : Advanced dementia/anxiety, hypothyroidism, anemia of chronic disease
Hospital Course : Patient was 84-year-old female with advanced dementia residing at a memory care unit who presented with right wrist pain, redness and swelling. She denied fevers or chills. This was noticed on the day of admission there were no
reported injuries or falls. Patient was very combative and tried to flee and has advanced dementia. There is no history of gout or previous joint infections. Patient was admitted with presumed cellulitis.
Problem #1: Acute transverse impacted fracture of the distal right radius with small acute displaced fracture of the ulnar styloid. Patient was initially admitted with a diagnosis of cellulitis. Orthopedics was consulted for possible aspiration
for septic joint and/or crystalloid deposition. Patient was given 1 dose of Decadron 10 mg x 1 in case this was gout. Uric acid was checked and was found to be 4.7. Portable wrist x-ray was done which showed fracture as mentioned. This was done
at the bedside because we felt that the patient would not cooperate with going down to the department for a formal x-ray study. Brace was ordered and the patient is instructed to keep that on her wrist at all times including sleep. She will
follow-up with orthopedics in 2 weeks.
Problem #2: Acute kidney injury. Patient's creatinine on admission was 1.1. This was thought to be due to dehydration. Patient received IV fluids with appropriate resolution of her creatinine to 0.8.
Problem #3: All other medical issues. These include Advanced dementia/anxiety, hypothyroidism, anemia of chronic disease. These medical issues were stable during her hospitalization. Medications were continued as able.
Patient is stable for discharge back to her memory care unit at this time. If there are any questions regarding this dictation or her hospital stay, please not hesitate to call. Our office number is [phone].
Time for discharge 31 minutes.
Important imaging findings :
WRIST X-RAY IMPRESSION:
1. Acute transverse impacted fracture of the distal right radius.
2. Small acute displaced fracture of the ulnar styloid.
3. Moderate osteoarthritis of the scaphotrapezial joint.
Discharge Plan
-
Patient Disposition: Assisted Living
Discharge Diagnosis/Procedures: Acute transverse impacted fracture of the distal right radius with small acute displaced fracture of the ulnar styloid, acute kidney injury resolved, advanced dementia/anxiety, hypothyroidism, anemia of chronic
disease
Condition: Fair
Diet: As tolerated and Regular
Additional Activity: No weightbearing to right wrist--wear splint at all times including sleep
Driving Restrictions: No driving
Bathing Restrictions: None
Other Services: VN
Referrals:
Ugo Hernadez MD [Active] - in two weeks
Radha Caballero DO [Family Provider] - in less than 1 week
Prescriptions:
New
acetaminophen 325 mg capsule
650 mg PO QID Qty: 60 0RF
oxycodone 5 mg tablet
5 mg PO Q6H PRN (Reason: severe pain) Qty: 14 0RF
tramadol 25 mg tablet
12.5 mg PO Q6H PRN (Reason: moderate pain) Qty: 10 0RF
Continued
levothyroxine 75 mcg tablet
75 mcg PO DAILY
Eucerin Skin Calming Cream
1 applic TOPICAL DAILY
trazodone 50 mg Tablet
25 mg PO HS
clonazepam 0.5 mg Tablet
0.25 mg PO BID
clonazepam 0.5 mg Tablet
0.5 mg PO DAILYPRN PRN (Reason: anxiety)
Rx Instructions:
give prior to care, do not exceed 2 doses in 24hr
Discharge Orders:
Discharge Patient (As Directed); Ordered 01/10/25
Ordered By: Ariana Pizano
Discharge Date and Time
Print Language: ARABIC
== END 2025-01-10 18:42 | disposition home health service (06) | DRG 563 ==
LOC: 4 EAST ACU 08:01
PROVIDERS: ADMITTING PHYSICIAN Hospitalist; ATTENDING PHYSICIAN Internal Medicine; CONSULT PHYSICIAN Specialist; EMERGENCY PHYSICIAN Student in an Organized Health Care Education/Training Program; FAMILY PHYSICIAN Family Medicine
DX: S52.501A Unspecified fracture of the lower end of right radius, initial encounter for closed fracture (principal); N17.9 Acute kidney failure, unspecified; F03.93 Unspecified dementia, unspecified severity, with mood disturbance; F03.94 Unspecified dementia, unspecified severity, with anxiety; S52.611A Displaced fracture of right ulna styloid process, initial encounter for closed fracture; M19.031 Primary osteoarthritis, right wrist; Z66 Do not resuscitate; E03.9 Hypothyroidism, unspecified; N18.9 Chronic kidney disease, unspecified; D63.1 Anemia in chronic kidney disease; Z91.81 History of falling; E86.0 Dehydration; X58.XXXA Exposure to other specified factors, initial encounter
CPT/HCPCS: 73100; 80048; 82550; 84550; 85025; 96374; 99284

== ENCOUNTER 2025-01-13 16:55 | Emergency (ER) | payer MEDICARE, OTHER, SELFPAY ==
[2025-01-13 17:07] VITALS: BP 147/83
--- NOTE | 2025-01-13 18:46 | ED.GENMED ---
History of Present Illness
General
Chief Complaint: Head Injury
Source: patient
Exam Limitations: dementia
Time Seen by Provider: 01/13/25 17:52
History of Present Illness
History of Present Illness:
84-year-old female advanced dementia from a dementia unit fall during PT into a couch she is acting normally LAUREN Sherwood called to confirm the history, here she appears comfortable she moves all extremities no overt signs of head or neck trauma no
pain with range of motion of her hips
Past History
Past History
ED Past Medical History: Other (Dementia)
Social History
Alcohol: None
Drug: None
Living: custodial
Employment: Not employed
Family History
Family History: Unable to obtain (Dementia)
Review of Systems
Review of Systems
Unable to obtain full review of systems at this time due to: dementia
All Other Systems: Not applicable
Phy Exam
Physical Exam
Physical Exam:
Physical Exam
General: Pleasant elderly demented female no overt signs of head or neck
Neck: No tongue bite
Heart: Regular
Lungs: no acute respiratory distress.
Neuro: Moves all extremities,
Skin: no rash
Psychiatric: Demented cooperative
Extremities: No pain with range of motion of the hips
Course
Orders/Labs/Results
Orders:
Orders
01/13/25 17:25
CT Head W/o Iv Contrast Urgent
Comment:
Reason For Exam: fall, head injury
01/13/25 18:04
CT Cervical Spine W/o Iv Contr Urgent
Comment:
Reason For Exam: fall
Vital Signs
Initial and Last Documented VS:
Initial Vital Signs
Temp Pulse Resp BP Pulse Ox
98.4 F 66 20 147/83 98
01/13/25 17:07 01/13/25 17:07 01/13/25 17:07 01/13/25 17:07 01/13/25 17:07
Last Documented Vital Signs
Temp Pulse Resp BP Pulse Ox
98.4 F 66 20 147/83 98
01/13/25 17:07 01/13/25 17:07 01/13/25 17:07 01/13/25 17:07 01/13/25 17:07
MDM/Problems Addressed
Differential Diagnosis Includes:
Skull fracture subdural epidural C-spine injury no signs of hip fracture by history
MDM/Problems Addressed:
Fall
Chronic conditions affecting care:
Dementia
Acute Exacerbation and/or Progression of Chronic Illness:
Dementia
*Radiology
Radiology exam reviewed: radiology read reviewed
*Pulse Oximetry
Patient hypoxic: no
*Critical Care Note
Total Time (30-74mins, 75-104mins- exclusive of procedures): Not Applicable
Update Note
Update Note:
Update CT noted formal report pending
ED Attending Note
-
Portions of this chart may have been created with voice recognition software.� Occasional wrong word or��sound alike� substitutions may have occurred due to the inherent limitations of voice recognition software.
Discharge Plan
Departure
Patient Disposition: Home (Routine Discharge)
Date of Disposition: 01/13/25
Time of Disposition: 18:46
Patient with high blood pressure during this ER visit?: No
Condition: Good
Discharge Problem:
Fall
Instructions: Head Injury in Adults (DC), Minor Head Injury (DC)
Prescriptions:
No Action
levothyroxine 75 mcg tablet
75 mcg PO DAILY
Eucerin Skin Calming Cream
1 applic TOPICAL DAILY
trazodone 50 mg Tablet
25 mg PO HS
clonazepam 0.5 mg Tablet
0.25 mg PO BID
clonazepam 0.5 mg Tablet
0.5 mg PO DAILYPRN PRN (Reason: anxiety)
Rx Instructions:
give prior to care, do not exceed 2 doses in 24hr
acetaminophen 325 mg capsule
650 mg PO QID Qty: 60 0RF
oxycodone 5 mg tablet
5 mg PO Q6H PRN (Reason: severe pain) Qty: 14 0RF
tramadol 25 mg tablet
12.5 mg PO Q6H PRN (Reason: moderate pain) Qty: 10 0RF
Referrals:
Radha Caballero DO [Family Provider] -
Interventions
Interventions:
*Risk Screen - Suicide Last Done: 01/13/25 17:07
*General Assessment Last Done: 01/13/25 17:07
*Neglect/Abuse Screening Last Done: 01/13/25 17:07
*ED- Fall Risk Assessment Last Done: 01/13/25 17:07
*ED COVID-19 Vaccine History Last Done: 01/13/25 17:07
ED- Neurological Assessment Last Done: 01/13/25 17:07
ED-Skin Assessment Last Done: 01/13/25 17:07
Discharge Date and Time
Print Language: SWEDISH
== END 2025-01-13 20:55 | disposition home or self-care (01) ==
LOC: EMR 16:55
PROVIDERS: EMERGENCY PHYSICIAN Emergency Medicine; FAMILY PHYSICIAN Family Medicine
DX: S09.90XA Unspecified injury of head, initial encounter (principal); W08.XXXA Fall from other furniture, initial encounter; F03.90 Unspecified dementia, unspecified severity, without behavioral disturbance, psychotic disturbance, mood disturbance, and anxiety
CPT/HCPCS: 99284; 70450; 72125